=== PATIENT | male | born 1960 | race Two or more races ===

== ENCOUNTER 2020-02-03 20:10 | Inpatient (IN) | payer MEDICARE, OTHER ==
[~2020-02-03] VITALS: Ht 175.3 cm; Wt 67.1 kg
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
--- NOTE | 2020-02-03 20:58 | NUR ---
LUSTER REPAIRER AT BEDSIDE
[2020-02-03 21:00] LABS: CALCIUM, SERUM 9.7 mg/dL (8.5-10.1); CARBON DIOXIDE 25 mmol/L (21-32); CHLORIDE 101 mmol/L (98-107); CREATININE 0.8 mg/dL (0.6-1.3); GLUCOSE 110 mg/dL (74-106); SODIUM SERUM 134 mmol/L (136-145); UREA NITROGEN, BLOOD 26 mg/dL (7-18)
[2020-02-03 21:05] LABS: ALANINE AMINOTRANSFERASE 45 U/L (12-78); ALBUMIN 4.1 g/dL (3.4-5.0); ALCOHOL, BLOOD < 3 mg/dL (0-0); ALKALINE PHOSPHATASE 66 U/L (46-116); ASPARTATE AMINOTRANSFERASE 53 U/L (15-37); BILIRUBIN,DIRECT 0.1 mg/dL (0.0-0.2); BILIRUBIN,TOTAL 0.9 mg/dL (0.2-1.0); TOTAL PROTEIN, SERUM 7.5 g/dL (6.4-8.2)
[2020-02-03 21:21] LABS: BASOPHILS % (AUTO) 0.6 % (0.0-2.0); EOSINOPHILS % (AUTO) 3.6 % (0.0-6.0); HEMATOCRIT 48 % (39-51); HEMOGLOBIN 16.3 g/dL (13.5-17.5); LYMPHOCYTES # (AUTO) 1.2 /CMM (0.8-4.8); LYMPHOCYTES % (AUTO) 19.9 % (20.0-44.0); MEAN CORPUSCULAR HGB CONC 34 g/dl (31.0-36.0); MEAN CORPUSCULAR VOLUME 84 fL (80-96); MONOCYTES # (AUTO) 0.5 /CMM (0.1-1.30); MONOCYTES % (AUTO) 9.3 % (2.0-12.0); NEUTROPHILS # (AUTO) 3.9 /CMM (1.8-8.9); NEUTROPHILS % (AUTO) 66.6 % (43.0-81.0); PLATELET COUNT (AUTO) 163 /CMM (150-450); RED BLOOD CELL COUNT(AUTO) 5.74 MIL/uL (4.5-6.0); WHITE BLOOD COUNT (AUTO) 5.8 K/uL (4.3-11.0)
[2020-02-03 21:27] LABS: ACETAMINOPHEN 0 ug/ml (10-30); SALICYLATE 1.8 mg/dL (2.8-20.0)
--- NOTE | 2020-02-03 21:53 | NUR ---
AMBULATED TO THE RESTROOM TO PROVIDE URINE SAMPLE
--- NOTE | 2020-02-03 22:19 | NUR ---
PT PROVIDED URINE SAMPLE. SENT TO LAB
[2020-02-03 22:21] LABS: APPEARANCE,URINE Clear (CLEAR); BILIRUBIN,URINE Negative (NEGATIVE); BLOOD, URINE Negative Ery/uL (NEGATIVE); COLOR,URINE Yellow (YELLOW); KETONES,URINE Negative (NEGATIVE); LEUKOCYTE ESTERASE ,URINE Negative (NEGATIVE); NITRITE, URINE Negative (NEGATIVE); PROTEIN,URINE Negative (NEGATIVE); UGLUCOSE Negative (NEGATIVE); UROBILINOGEN,URINE 0.2 EU/dL (0.2)
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
[2020-02-03] MEDS ORDERED: SAW450CA7 PO (23:48)
[2020-02-03] MEDS ORDERED: DIVA500T2 PO (23:48)
[2020-02-03] MEDS ORDERED: RISP3TAB5 PO (23:48)
[2020-02-03] MEDS ORDERED: MV-M1TAB18 PO (23:48)
[2020-02-03] MEDS ORDERED: RISP2TAB23 PO (23:48)
[2020-02-03] MEDS ORDERED: MULT1CAP34 PO (23:48)
[2020-02-03] MEDS ORDERED: ZINC1CAP2 PO (23:48)
[2020-02-04 02:18] VITALS: BP 126/82
--- NOTE | 2020-02-04 02:18 | NUR ---
GPS RN NOTE: ADMISSION ADMITTED A 59-YR OLD MALE, FROM [facility] TO [facility] ER & THEN TO GPS UNIT. PATIENT IS CONSERVED UPON ADMISSION. PATIENT IS ADMITTED TO PSYCH UNIT BECAUSE PER REPORT, PT. HAD AN AGGRESSIVE BEHAVIOR TOWARDS STAFF & HOARDING STUFF IN HIS ROOM AT HIS FACILITY. UPON FACE TO FACE ASSESSMENT, PATIENT IS A/OX2, CONFUSED, FORGETFUL, DELAYED SPEECH. ANXIOUS/RESTLESS AT TIMES. WORRIED ABOUT HIS BELONGINGS/STUFF AT ALL TIMES. SUSPICIOUS. DISORGANIZED, POOR HYGIENE, DISHEVELED. AMBULATORY WITH ASSISTIVE DEVICE (CANE). PT'S RIGHTS HANDBOOK AND A GUIDE TO PRESCRIPTION MEDICATIONS GIVEN. IN NO APPARENT DISTRESS NOTED. BELONGINGS WERE INVENTORIED AND CHECKED FOR CONTRABAND. PT. IS UNDER THE PSYCHIATRIC CARE OF DR. GALVEZ ORDERS OBTAINED, AND UNDER THE MEDICAL CARE OF DR. GARCIA. PATIENT REFUSED SKIN ASSESSMENT. REFUSED PICTURES, NOTED WITH LONG TOE NAILS & FUNGAL LIKE HAND NAILS. PT DENIES PAIN/ DISCOMFORT. BED LOCKED AND PLACED IN LOWEST POSITION TO MAINTAIN SAFETY. FALL PRECAUTIONS IMPLEMENTED. BED ALARM ON. WILL CONTINUE TO MONITOR Q15 MINS. FOR SAFETY AND BEHAVIOR.
[2020-02-04] MEDS: ZINC SULFATE 220 MG CAPSULE PO SCH (02:45)
[2020-02-04] MEDS ORDERED: ACETAMINOPHEN 325 MG TABLET PO PRN (03:00)
[2020-02-04] MEDS ORDERED: BLOOD SUGAR DIAGNOSTIC 1 EACH STRIP IN ONE (03:00)
[2020-02-04] MEDS ORDERED: MAGNESIUM HYDROXIDE 30 ML UDC PO PRN (03:00)
[2020-02-04] MEDS ORDERED: MAG HYDROX/AL HYDROX/SIMETH 30 ML UDC PO PRN (03:00)
--- NOTE | 2020-02-04 03:00 | NUR ---
GPS RN NOTE PATIENT HAS GLASSLESS ON BUT GLASSLESS FRAME IS BROKEN & 1 LENS IS ALMOST HANGING OUT OF THE GLASSES FRAME & HAS TAPE ON THEM. ASKED PATIENT TO GIVE HIS GLASSES TO THE NURSE TO TRY TO FIX THEM BUT PATIENT REFUSED & WANTED TO KEEP THOSE GLASSES ON & STATED," I CAN FIX MY GLASSES THE WAY I WANT, I HAVE GLUE TO USE ON THEM." DESPITE OF RISKS & BENEFITS EXPLANATIONS, PATIENT CONTINUED TO REFUSE TO REMOVE HIS GLASSES EVEN HE HAS SECOND PAIR OF GLASSES WITH HIM. WILL ENDORSE TO AM RN TO MONITOR HIM CLOSELY.
--- NOTE | 2020-02-04 04:24 | NUR ---
GPS RN NOTE PATIENT IS AWAKE, STANDING QUIETLY IN THE HALLWAY MOST OF THE TIME, REFUSES TO GO BACK TO HIS ROOM, KEEP ASKING FOR HIS BELONGINGS WHEN ANY STAFF PASSES BY. DESPITE OF PROVIDING REDIRECTIONS, PATIENT COMES BACK TO HIS ROOM DOOR & WANTS TO STAND THERE. WILL CONTINUING TO MONITOR FOR SAFETY & BEHAVIOR.
--- NOTE | 2020-02-04 06:57 | NUR ---
GPS RN NOTE: REFUSED AM LABS PATIENT REFUSED AM LABS DESPITE OF RISKS & BENEFITS EXPLANATIONS.
[2020-02-04 08:00] VITALS: BP 124/70
[2020-02-04] MEDS ORDERED: MULTIVIT W/MINERALS 1 TAB TABLET PO SCH (09:00)
[2020-02-04] MEDS ORDERED: DIVALPROEX SODIUM 500 MG TABLET.DR PO SCH (09:00)
--- NOTE | 2020-02-04 09:56 | NUR ---
Public Conservator Contact: SADIA called the pts conservatorTristen ([phone]), but the voicemail was full and SADIA was unable to leave a message. SADIA will attempt to contact the conservator at a later time.
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
--- NOTE | 2020-02-04 10:55 | NUR ---
Initial Discharge Plan: Pt currently resides at [facility] located at [address] [place] [address]; ([phone]). Per pt, he does not know where he would like to go. SW will work with the pt and the MD regarding appropriate discharge planning. SW will form a safe and proper discharge.
[2020-02-04] MEDS: CHOLECALCIFEROL 1,000 UNIT TABLET (VIT D3) PO SCH (11:03)
[2020-02-04] MEDS: MULTIVIT W/MINERALS 1 TAB TABLET PO SCH (11:03)
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
--- NOTE | 2020-02-04 15:20 | NUR ---
GROUP THERAPY: SW encouraged the pt to participate in group therapy but the pt is confused and disorganized. Pt is unable to participate in group therapy at this time. Pt did not engage with SW when SW attempted to provide individual intervention.
[2020-02-04 16:00] VITALS: BP 106/73
--- NOTE | 2020-02-04 18:00 | NUR ---
dr. ahuja in to see pt.
--- NOTE | 2020-02-04 19:20 | NUR ---
REFUSED LABS CHANGE MANAGEMENT ADMINISTRATOR IS HERE & PATIENT CONTINUED TO REFUSE LABS DESPITE OF RISKS & BENEFITS EXPLANATIONS. NON COMPLAINT WITH PLAN OF CARE AT THIS TIME.
[2020-02-04 20:00] VITALS: BP 115/66
[2020-02-05] MEDS: ZINC SULFATE 220 MG CAPSULE PO SCH (01:29)
[2020-02-05 08:00] VITALS: BP 106/72
[2020-02-05] MEDS: CHOLECALCIFEROL 1,000 UNIT TABLET (VIT D3) PO SCH (09:30)
[2020-02-05] MEDS: MULTIVIT W/MINERALS 1 TAB TABLET PO SCH (09:30)
--- NOTE | 2020-02-05 14:14 | NUR ---
SNF Referral: SADIA faxed a referral to [facility] with attention to Julia to the fax number: [phone].
--- NOTE | 2020-02-05 15:05 | NUR ---
Group Note: SW encouraged the pt to participate in group therapy on 02/05/20 but the pt appeared to be confused and disorganized. Pt spoke slowly and had tangential speech. Pt was not easily redirected. Pt is unable to participate in group therapy at this time.
[2020-02-05 16:00] VITALS: BP 113/70
--- NOTE | 2020-02-05 16:03 | NUR ---
Public Conservator Contact: SADIA called the pts conservatorTristen ([phone]), but the voicemail was full and SADIA was unable to leave a message. SADIA will attempt to contact the conservator at a later time.
--- NOTE | 2020-02-05 16:09 | NUR ---
RESTING IN RM. AND VERY ISOLATIVE.NO SPECIFIC COMPLAINTS.
--- NOTE | 2020-02-05 16:11 | NUR ---
REFUSED LABS IN AM.
[2020-02-05 19:38] VITALS: BP 114/78
[2020-02-05 20:00] VITALS: BP 114/78
[2020-02-06] MEDS: ZINC SULFATE 220 MG CAPSULE PO SCH (00:33)
[2020-02-06 08:00] VITALS: BP 112/66
[2020-02-06] MEDS: MULTIVIT W/MINERALS 1 TAB TABLET PO SCH (08:37)
[2020-02-06] MEDS: CHOLECALCIFEROL 1,000 UNIT TABLET (VIT D3) PO SCH (08:47)
--- NOTE | 2020-02-06 09:23 | NUR ---
Public Guardian Office: SADIA called the Public Guardian Office and spoke to the Unit 3 Duty Worker named Jaya who stated that he will give Tristen, the pts conservator, the phone number to contact the SW and the pts MD.
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
[2020-02-06] MEDS ORDERED: risperiDONE 1 MG TABLET PO SCH (13:30)
[2020-02-06] MEDS: DIVALPROEX SODIUM 250 MG TABLET.DR PO SCH ×2 (13:54→18:00)
[2020-02-06] MEDS: risperiDONE 1 MG TABLET PO SCH ×2 (13:54→18:00)
--- NOTE | 2020-02-06 15:11 | NUR ---
Group Note: SW encouraged the pt to participate in group therapy on 02/06/20 but the pt appeared to be confused and disorganized. Pt spoke slowly and had tangential speech. Pt was not easily redirected. Pt is unable to participate in group therapy at this time. SW provided the pt with an individual session regarding his conservator allowing the MD to give the pt a monthly injectable. Pt stated that he did not want his conservator to agree to this but the SW explained that due to his role as the pts conservator he has the right to make whatever decision that he would think is the best for the pt. Pt became agitated and told the SW to "leave me alone."
[2020-02-06 16:00] VITALS: BP 125/81
--- NOTE | 2020-02-06 19:57 | NUR ---
GPS/RN OPENING NOTES RECEIVED PATIENT SITTING IN BED, AWAKE, ALERT X2, REQUIRE CONSERVATOR IN DECISION MAKING, RESPIRATIONS EVEN AND UNLABORED, MONITORED FOR SAFETY AND ANY CHANGES OF CONCERNS. ABLE TO WALK SAFELY AND ABLE TO ACKNOWLEDGE RN AND MADE NEEDS KNOWN THAT HE HAS TO MAKE HIS CONSERVATOR KNOW ABOUT PLAN FOR HIS MEDICATION AND ANY CHANGES GIVEN BY MD THAT HE FEELS NEED TO BE DECIDED UPON BOTH BY CONSERVATOR AND HIMSELF. TO FOLLOW UP WITH CASE MANAGEMENT.
[2020-02-06 20:00] VITALS: BP 126/78
--- NOTE | 2020-02-06 22:34 | NUR ---
MS/RN NOTES' PATIENT MONITORED AND OBSERVED NOT SITTING STILL, PREFER TO HAVE HIS DINNER TRAY AT BEDSIDE, PROVIDED SNACKS BUT NOT EATING THEM, PREOCCUPIED WITH OWN THOUGHTS, REQUIRE ASSISTANCE TO KEEP ROOM LESS CLUTTERED, AND REQUIRE MONITORING. REFUSE TO CHANGE TO GOWN,.
[2020-02-07] MEDS: ZINC SULFATE 220 MG CAPSULE PO SCH ×2 (00:20→23:32)
--- NOTE | 2020-02-07 00:21 | NUR ---
MS/RN NOTES PATIENT REFUSED TO TAKE MEDICINE AT THIS TIME, IN BED AND ASLEEP.
--- NOTE | 2020-02-07 01:07 | NUR ---
GPS/RN NOTES PATIENT AWAKEN FROM SLEEP, AND PREOCCUPIED WITH HIS OWN THOUGH AND ENERGY IN HIS PAPER WORKS.
[2020-02-07 08:00] VITALS: BP 129/64
[2020-02-07] MEDS: risperiDONE 1 MG TABLET PO SCH ×3 (08:35→20:18)
[2020-02-07] MEDS: MULTIVIT W/MINERALS 1 TAB TABLET PO SCH (08:35)
[2020-02-07] MEDS: CHOLECALCIFEROL 1,000 UNIT TABLET (VIT D3) PO SCH (08:35)
[2020-02-07] MEDS: DIVALPROEX SODIUM 250 MG TABLET.DR PO SCH ×2 (08:35→13:25)
--- NOTE | 2020-02-07 08:45 | NUR ---
Turnstile Attendant Contact: SADIA received a call from Mike Limon ([phone]) who stated that he is a Turnstile Attendant who has been in contact with the pt for the past 5 years and has been noting the experiences that the pt has had in the long term facilities and his experience with the conservator. He stated that the pt called him in a panic the previous day and explained that the MD wants to give him a monthly injectable and that his conservator approved it. He stated that the pt does not want this shot and that he also believes that this shot would be unnecessary and in fact lethal to the pt. He states that the pt is not Schizophrenic and that he has a hoarding problem and would be more appropriately diagnosed with Obsessive Compulsive Disorder. Pts field traffic investigator stated that he stayed up all night writing this report as the pts situation has gone on for too long and that he is prepared to release it. SW stated that she will call him back once she consults with the appropriate individuals.
--- NOTE | 2020-02-07 09:43 | NUR ---
Conservator Contact: SW called the pts conservator, Tristen ([phone]), and informed him that the SW got a call from a internal investigator. Pts conservator stated that the pt does this when he gets concerned about his treatment and makes complaints to whoever he can. He stated to direct the call to him.
--- NOTE | 2020-02-07 09:45 | NUR ---
Individual Intervention: SW met with the pt to discuss his plan and the pt stated that he does not want to have a monthly injectable. He stated that he has been working with his friend, Mike, to fight this. SW explained the reasons why the pt needs this shot and why the conservator has the right to determine whether or not the MD can give it to the pt. Pt stated that he feels that the shot would hurt him because of his thin frame and stated that he does not think that the conservator who is not an MD can have the right to make this decision. SW attempted to explain the situation to the best of her ability but the pt was not understanding the situation.
--- NOTE | 2020-02-07 15:29 | NUR ---
SNF Referral: SADIA faxed a referral to [facility] with attention to Laura to the fax number: ([phone]).
[2020-02-07 16:00] VITALS: BP 125/81
[2020-02-07] MEDS: DIVALPROEX SODIUM 500 MG TABLET.DR PO SCH (17:22)
--- NOTE | 2020-02-07 19:10 | NUR ---
GPS RN opening notes Received Pt in the room resting comfortably. Pt is alert and orientedX2, confused, anxious and delayed speech. Respiration is normal. No SOB. No S/S of distress noted. Offered oral fluids and snacks. Med complaints. Pt ambulates with a steady gait. Pt denies SI/HI at this time. Reality orientation provided. Safety precautions is maintained. Will continue to monitor Q 15 mins checks for safety, mood and behavior.
[2020-02-07 20:00] VITALS: BP 109/57
[2020-02-07 20:44] VITALS: BP 109/57
[2020-02-08 08:00] VITALS: BP 132/75
[2020-02-08] MEDS: CHOLECALCIFEROL 1,000 UNIT TABLET (VIT D3) PO SCH (08:17)
[2020-02-08] MEDS: MULTIVIT W/MINERALS 1 TAB TABLET PO SCH (08:17)
[2020-02-08] MEDS: risperiDONE 1 MG TABLET PO SCH ×3 (08:17→21:06)
[2020-02-08] MEDS: DIVALPROEX SODIUM 250 MG TABLET.DR PO SCH ×2 (08:17→12:29)
[2020-02-08 16:00] VITALS: BP 116/65
[2020-02-08] MEDS: DIVALPROEX SODIUM 500 MG TABLET.DR PO SCH (16:52)
[2020-02-08 20:00] VITALS: BP 143/71
[2020-02-08 20:32] VITALS: BP 143/71
[2020-02-08] MEDS: ZINC SULFATE 220 MG CAPSULE PO SCH (23:35)
[2020-02-09 08:00] VITALS: BP 106/74
[2020-02-09] MEDS: CHOLECALCIFEROL 1,000 UNIT TABLET (VIT D3) PO SCH (08:07)
[2020-02-09] MEDS: DIVALPROEX SODIUM 250 MG TABLET.DR PO SCH ×2 (08:07→12:33)
[2020-02-09] MEDS: MULTIVIT W/MINERALS 1 TAB TABLET PO SCH (08:08)
[2020-02-09] MEDS: risperiDONE 1 MG TABLET PO SCH ×3 (08:08→21:14)
[2020-02-09 15:56] VITALS: BP 100/69
[2020-02-09] MEDS: DIVALPROEX SODIUM 500 MG TABLET.DR PO SCH (17:11)
[2020-02-09 19:37] VITALS: BP 105/60
[2020-02-09 20:00] VITALS: BP 105/60
--- NOTE | 2020-02-09 21:30 | NUR ---
GPS RN NOTE: REFUSED WEEKLY SKIN ASSESSMENT PATIENT IS CONFUSED & FORGETFUL, REFUSED WEEKLY SKIN ASSESSMENT DESPITE OF RISKS & BENEFITS EXPLANATIONS, PATIENT WALKS AWAY, POOR CONCENTRATION, IF APPROACHED MULTIPLE TIMES, HE GOT ANXIOUS, RESTLESS, GETS SUSPICIOUS & MUMBLES & DOES NOT WANT TO BE TOUCHED AT ALL. WILL CONTINUE TO MONITOR FOR ANY CHANGES.
[2020-02-10] MEDS: ZINC SULFATE 220 MG CAPSULE PO SCH (00:28)
[2020-02-10 08:00] VITALS: BP 126/78
[2020-02-10] MEDS: MULTIVIT W/MINERALS 1 TAB TABLET PO SCH (08:21)
[2020-02-10] MEDS: DIVALPROEX SODIUM 250 MG TABLET.DR PO SCH ×2 (08:21→12:29)
[2020-02-10] MEDS: risperiDONE 1 MG TABLET PO SCH ×3 (08:21→21:08)
[2020-02-10] MEDS: CHOLECALCIFEROL 1,000 UNIT TABLET (VIT D3) PO SCH (08:23)
--- NOTE | 2020-02-10 10:05 | NUR ---
SNF Contact: SW contacted Miles ([phone]), Direct Support Staff Member for [facility], who stated that [facility] admissions has been closed and cannot accept this pt.
--- NOTE | 2020-02-10 10:12 | NUR ---
SNF Referral: SADIA faxed a referral to [facility] with attention to Yla to the fax number: ([phone]).
--- NOTE | 2020-02-10 11:10 | NUR ---
SNF Contact: Glynn ([phone]) from [facility] called the SW and stated that the pt is being considered for placement once there is a COVID clearance and once they have a male discharge.
--- NOTE | 2020-02-10 15:59 | NUR ---
Group Note: SW encouraged the pt to attend group therapy on 02/10/20 but the pt stated that he did not want to interact with other individuals because they find him annoying. SW stated that the pt can have an individual intervention with the pt and he stated that was acceptable. Pt began talking to the pt about him not receiving a shot and his discharge being pending. SW stated that he has been compliant with his medications and therefore he does not need to receive the shot anymore. Pt stated that he wanted to be discharged as soon as possible and SW stated that it will be in a few days once he is cleared for COVID.
[2020-02-10 16:00] VITALS: BP 119/76
[2020-02-10] MEDS: DIVALPROEX SODIUM 500 MG TABLET.DR PO SCH (17:22)
[2020-02-10 20:12] VITALS: BP 122/71
[2020-02-11] MEDS: ZINC SULFATE 220 MG CAPSULE PO SCH ×2 (00:44→23:47)
[2020-02-11 08:00] VITALS: BP 119/64
[2020-02-11] MEDS: CHOLECALCIFEROL 1,000 UNIT TABLET (VIT D3) PO SCH (08:10)
[2020-02-11] MEDS: MULTIVIT W/MINERALS 1 TAB TABLET PO SCH (08:11)
[2020-02-11] MEDS: DIVALPROEX SODIUM 250 MG TABLET.DR PO SCH ×2 (08:11→12:02)
[2020-02-11] MEDS: risperiDONE 1 MG TABLET PO SCH ×3 (08:11→21:20)
[2020-02-11 16:00] VITALS: BP 117/73
[2020-02-11] MEDS: DIVALPROEX SODIUM 500 MG TABLET.DR PO SCH (16:24)
--- NOTE | 2020-02-11 19:26 | NUR ---
RN NOTES PATIENT IN BED, LAYING DOWN. ALERT AND ORIENTED X 2. CONFUSED, FORGETFUL, AND DELAYED SPEECH. PT IS AMBULATORY AND STEADY, STILL HOARDING BELONGINGS IN ROOM. DISCUSSED PLAN OF CARE. BED IN LOWEST POSITION, LOCKED, AND WILL CONTINUE TO MONITOR.
[2020-02-11 20:13] VITALS: BP 119/64
--- NOTE | 2020-02-12 06:29 | NUR ---
RN NOTES PT REFUSED LAB. EDUCATED ON REASON FOR BLOOD DRAW. WILL CONTINUE TO MONITOR.
[2020-02-12 08:00] VITALS: BP 109/69
[2020-02-12] MEDS: DIVALPROEX SODIUM 250 MG TABLET.DR PO SCH ×2 (08:33→13:04)
[2020-02-12] MEDS: CHOLECALCIFEROL 1,000 UNIT TABLET (VIT D3) PO SCH (08:33)
[2020-02-12] MEDS: MULTIVIT W/MINERALS 1 TAB TABLET PO SCH (08:33)
[2020-02-12] MEDS: risperiDONE 1 MG TABLET PO SCH ×3 (08:33→21:49)
--- NOTE | 2020-02-12 10:34 | NUR ---
Conservator Contact: SADIA called the pts conservatorTristen ([phone]), and left a voicemail stating that the pt will be discharged soon to [facility].
--- NOTE | 2020-02-12 14:20 | NUR ---
Group Note: SW encouraged the pt to attend group therapy on 02/12/20 but the pt stated that he did not want to interact with other individuals. SW informed him about his discharge for the following day and the pt stated that he wanted to go to a board and care. SW stated that he does meet criteria yet and needs to show more stabilization. Pt stated that he understands.
[2020-02-12 16:00] VITALS: BP 110/68
[2020-02-12] MEDS: DIVALPROEX SODIUM 500 MG TABLET.DR PO SCH (17:09)
[2020-02-12 20:04] VITALS: BP 102/59
[2020-02-12] MEDS: ZINC SULFATE 220 MG CAPSULE PO SCH (23:51)
[2020-02-13 08:00] VITALS: BP 113/73
[2020-02-13] MEDS: MULTIVIT W/MINERALS 1 TAB TABLET PO SCH (08:22)
[2020-02-13] MEDS: risperiDONE 1 MG TABLET PO SCH ×2 (08:22→12:35)
[2020-02-13] MEDS: CHOLECALCIFEROL 1,000 UNIT TABLET (VIT D3) PO SCH (08:22)
[2020-02-13] MEDS: DIVALPROEX SODIUM 250 MG TABLET.DR PO SCH ×2 (08:22→12:34)
--- NOTE | 2020-02-13 13:31 | NUR ---
Discharge Note: Pt was discharged to [facility] located at [address] [place] [address] . Pt was transported via [facility] at 5PM. Pts conservator, Tristen ([phone]), was informed. Upon discharge, the pt appeared to be in a euthymic mood and presents with a calm affect. Pt appears to be alert and oriented x4 (time, place, self and situation). Pt appears to be well groomed and appropriately dressed. Pt is ambulatory and appears to have fair physical health. Pt denied visual/auditory hallucinations and denied suicidal/homicidal ideation. Pt will be under the care of psychiatrist, Dr. Reynoso, located at [address] [place] [address]; [phone] and farmworker grain, Dr Figueroa, located at [address] [address]; .
[2020-02-13 16:00] VITALS: BP 124/78
[2020-02-13] MEDS: DIVALPROEX SODIUM 500 MG TABLET.DR PO SCH (16:23)
--- NOTE | 2020-02-13 17:04 | NUR ---
Conservator Tristen at [phone] was notified that pt. left.
--- NOTE | 2020-02-13 17:05 | NUR ---
GPS/RN-NOTES PATIENT HAS A DISCHARGE ORDER FROM DR. GALVEZ AND DNP JUSTYNA AWARE WITH ORDERS. PATIENT WAS DISCHARGE TO [facility] TODAY. PATIENT DID NOT VERBALIZE SI/HI,DENIES VISUAL/AUDITORY HALLUCINATIONS AT THE TIME OF DISCHARGE. REPORT WAS GIVEN TO NOREEN ( CIRCUIT JUDGE). PATIENT LEFT THE UNIT WITH ALL BELONGINGS INCLUDING SANZ MONEY ,X1 CELLPHONE WITH ASSURANCE ASSOCIATE AND ALL OTHER BELONGINGS . PATIENT LEFT IN STABLE CONDITION ALERT ORIENTED X3 WITH PERIODS OF FORGETFUL. AMBULATORY WITH STEADY GAIT.CIRCUS TRAIN SUPERVISOR BY AMBULANCE VIA GURNEY WITH TWO STAFF ASSIST. MASK WAS GIVEN TO THE PATIENT. JEANETTE SALDAÑA ([phone]) MADE AWARE OF THE DISCHARGE.
== END 2020-02-13 17:05 | DRG 885 ==
LOC: ER 20:11 → GPS 23:44
PROVIDERS: ADMIT Psychiatry & Neurology Psychosomatic Medicine; ATTEND Nurse Practitioner Acute Care
PROC: 0HBRXZZ Excision of Toe Nail, External Approach (ICD-10-PCS; principal; 2020-02-04)
DX: F25.0 Schizoaffective disorder, bipolar type (principal); N17.0 Acute kidney failure with tubular necrosis; E87.1 Hypo-osmolality and hyponatremia; F29 Unspecified psychosis not due to a substance or known physiological condition; F41.9 Anxiety disorder, unspecified; B35.1 Tinea unguium; F84.5 Asperger's syndrome; J44.9 Chronic obstructive pulmonary disease, unspecified; M19.90 Unspecified osteoarthritis, unspecified site; M41.9 Scoliosis, unspecified; N40.0 Benign prostatic hyperplasia without lower urinary tract symptoms; R74.0 Nonspecific elevation of levels of transaminase and lactic acid dehydrogenase [LDH]; F32.9 Major depressive disorder, single episode, unspecified
CPT/HCPCS: 36415; 80048-TC; 80076-TC; 80305; 81000-TC; 82962-TC; 85025-TC; 87081-TC; 97116-TC; 97530-TC; G0480; U0003-CS